=== PATIENT | male | born 1970 | race Caucasian/White ===

== ENCOUNTER 2017-03-15 07:59 | Day surgery (SDC) | payer OTHER ==
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
[2017-03-15] MEDS ORDERED: ceFAZolin 2 GM/SWFI 2 GM/20 ML SYR IVP ONE ×2 (08:44)
[2017-03-15] MEDS ORDERED: LR 1,000 ML IV ONE ×2 (08:44)
--- NOTE | 2017-03-15 08:57 | PDHPUP ---
History & Physical Update H&P update statement: This history and physical update is based on an assessment of the patient which was completed after admission or registration (within 24 hours), but prior to the surgery/procedure. H&P update: H&P reviewed & patient examined, no change in patient's condition since H&P completed
[2017-03-15] MEDS ORDERED: BUPIVACAINE 0.5% 30 ML SDV ONE ×2 (09:34)
[2017-03-15] MEDS ORDERED: PROPOFOL/EMULSION 500 MG/50 ML BOTTLE IV ONE ×2 (09:42)
[2017-03-15] MEDS ORDERED: fentaNYL 100 MCG/2 ML INJ ONE ×4 (09:44→10:06)
[2017-03-15] MEDS ORDERED: ACETAMINOPHEN 500 MG TAB PO PRN ×2 (09:50)
[2017-03-15] MEDS ORDERED: fentaNYL 100 MCG/2 ML INJ IVP PRN ×2 (09:50)
[2017-03-15] MEDS ORDERED: ALBUTEROL 3 ML DEYVIAL IH PRN ×2 (09:50)
[2017-03-15] MEDS ORDERED: HYDROmorphONE/DILAUDID 1 MG/ML INJ IVP PRN ×2 (09:50)
[2017-03-15] MEDS ORDERED: ONDANSETRON 4 MG/2 ML VIAL IVP PRN ×2 (09:50)
[2017-03-15] MEDS ORDERED: DEXAMETHASONE 4 MG/ML VIAL IVP PRN ×2 (09:50)
[2017-03-15] MEDS ORDERED: OXYCODONE/APAP 5/325 TAB PO PRN ×2 (09:50)
[2017-03-15] MEDS ORDERED: NALOXONE HCL 0.4 MG/ML INJ IVP PRN ×2 (09:50)
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
--- NOTE | 2017-03-15 10:12 | POSTOPPROG ---
Post Op Note Date of Operation: 03/15/17 Surgeon: Osiris Menezes Anesthesiologist: cari Anesthesia: GET(General Endotracheal) Pre-op Diagnosis: L 2nd toe osteomyelitis Post-op Diagnosis: same Indication: 46yo M with chronic wound and osteo on MRI Procedure: amputation L 2nd toe and distal metatarsal Findings: none unusual Inf/Abcess present in the surg proc area at time of surgery?: Yes Depth: Organ Space (bone) EBL: Minimal Specimen(s): 1. L 2nd toe for path 2. L 2nd toe for micro 3. L 2nd proximal margin for path
--- NOTE | 2017-03-15 10:42 | POSTANESTH ---
Post Anesthetic Evaluation Cardiovascular Status: Normal, Stable Respiratory Status: Normal, Stable Level of Consciousness/Mental Status: Can Participate in Eval, Mildly Sleepy, Arousable Pain Control: Adequate, Prn Tx Ordered Nausea/Vomiting Control: Adequate, Prn Tx Ordered Complications Possibly Related to Anesthesia: None Noted
[2017-03-15 11:17] VITALS: TEMP 97.9
[2017-03-15 11:45] VITALS: PULSE 96; RESP 14
[2017-03-15 12:57] VITALS: BP 134/90; O2SAT 89
== END 2017-03-15 12:56 | disposition home or self-care (01) ==
LOC: FSGY 07:59
PROVIDERS: ATTEND Surgery
PROC: 0Y6N0ZB Detachment at Left Foot, Partial 2nd Ray, Open Approach (ICD-10-PCS; principal; 2017-03-15 09:45)
DX: M86.272 Subacute osteomyelitis, left ankle and foot (principal); L97.524 Non-pressure chronic ulcer of other part of left foot with necrosis of bone; Z87.820 Personal history of traumatic brain injury; G83.21 Monoplegia of upper limb affecting right dominant side; G82.22 Paraplegia, incomplete
CPT/HCPCS: J0690; J2704; J3010